=== PATIENT | female | born 1955 | race Caucasian/White ===

== ENCOUNTER 2022-01-16 11:15 | Outpatient (CLI) | payer MEDICARE, BC, SELFPAY ==
--- NOTE | 2022-01-16 11:30 | CRLHL7_ITS ---
For Patients: As a result of the Century Cures Act, medical imaging exams and procedure reports are released immediately into your electronic medical record. You may view this report before your referring provider. If you have questions, please contact your health care provider. BILATERAL SCREENING MAMMOGRAM WITH COMPUTER-AIDED DETECTION AND TOMOSYNTHESIS TECHNIQUE: CC and MLO views were obtained. These mammographic images have been obtained using full-field digital technique. These mammographic images were interpreted with the benefit of computer-aided detection. Breast Tomosynthesis was used in this interpretation. COMPARISON FILM: 12/29/20, 12/10/19, 11/05/18. FINDINGS: There are scattered areas of fibroglandular density IMPRESSION: There is no radiographic evidence for malignancy. ASSESSMENT: BI-RADS Category 1: Negative RECOMMENDATION: Routine screening mammogram in 1 year. A lay language report of this examination will be provided to the patient. Lana Fortune M.D. Diagnostic/Breast Radiologist [email or web address] NURYS/Dictated by: Lana Fortune MD @ 01/16/2022 12:16:00 PM (Electronically Signed)
== END 2022-01-16 11:16 | disposition home or self-care (01) ==
LOC: MAMMO 11:16
PROVIDERS: Visit Provider Family Medicine
DX: Z12.31 Encounter for screening mammogram for malignant neoplasm of breast (principal)
CPT/HCPCS: 77063; 77067

== ENCOUNTER 2022-01-31 08:53 | Outpatient (CLI) | payer MEDICARE, BC, SELFPAY ==
--- NOTE | 2022-01-31 09:00 | CRLHL7_ITS ---
For Patients: As a result of the Century Cures Act, medical imaging exams and procedure reports are released immediately into your electronic medical record. You may view this report before your referring provider. If you have questions, please contact your health care provider. Indication: NICOTINE DEPENDANCE REMISSION F/U Technique: Noncontrast CT chest including high-resolution inspiratory images in the supine position. Please note that all CT scans at this facility use dose modulation, iterative reconstruction, and/or weight-based dosing when appropriate to reduce radiation dose to as low as reasonably achievable. Comparison: 10/21/2020, 07/25/2019, 01/14/2019 Findings: Stable nodules within the right lower lobe, series 3, slice 45 and series 3, slice 56, measuring up to 9 millimeters. Associated calcifications are present within 1 of the nodules. Stable 8 millimeter nodule right middle lobe, series 3, image 50. Stable pleural-based densities along the right major fissure. Left lung clear. No pulmonary fibrosis. No bronchiectasis. No infiltrate or edema. No effusion or pneumothorax. Visualized thyroid normal. Residual thymic tissue incidentally noted. No significant calcifications of the coronary arteries. No adenopathy. Upper abdomen normal. No fracture. Impression: Stable right-sided pulmonary nodules. No pulmonary fibrosis. Please note that all CT scans at this facility use dose modulation, iterative reconstruction, and/or weight-based dosing when appropriate to reduce radiation dose to as low as reasonably achievable. Dictated by John Burleson MD @ 01/31/2022 12:23:59 PM (Electronically Signed)
== END 2022-01-31 08:54 | disposition home or self-care (01) ==
LOC: CT 08:54
PROVIDERS: PCP Family Medicine; Visit Provider Internal Medicine Pulmonary Disease
DX: F17.201 Nicotine dependence, unspecified, in remission (principal); R91.8 Other nonspecific abnormal finding of lung field
CPT/HCPCS: 71250

== ENCOUNTER 2022-06-27 11:02 | Outpatient (CLI) | payer MEDICARE, BC, SELFPAY ==
[2022-06-27 14:07] LABS: Basophils Absolute Auto 0.02 K/uL (0.00-0.30); Basophils Percent Auto 0.4 % (0.0-3.0); Eosinophils Absolute Auto 0.16 K/uL (0.00-0.50); Hemoglobin* 14.3 gm/dL (12.0-16.0); Lymphocytes Absolute Auto 1.72 K/uL (0.90-2.90); Lymphocytes Percent Auto 32.6 % (20-44); Mean Corpuscular HGB Conc 33 gm/dL (32-36); Mean Corpuscular Hemoglobin 29 pg (26-34); Mean Corpuscular Volume 89 fL (80-100); Monocytes Percent Auto 10.6 % (0.0-11.0); Neutrophils Absolute Auto 2.81 K/uL (1.7-7.0); Neutrophils Percent Auto 53.4 % (42.0-72.0); Platelet Count* 284 K/uL (140-440); RDW Coefficient of Variation % 12.6 % (11.5-15.5); Red Blood Count 4.94 m/uL (4.00-5.20); White Blood Count* 5.27 K/uL (4.50-11.00)
[2022-06-27 14:15] LABS: Slide Review Reflex No
[2022-06-27 14:17] LABS: Chloride* 106 mmol/L (96-114); Potassium* 4.8 mmol/L (3.6-5.1); Sodium* 137 mmol/L (135-149)
[2022-06-27 14:19] LABS: Cholesterol* 229 mg/dL (90-199); Creatinine* 0.5 mg/dL (0.5-1.5); Estimated Glomerular Filt Rate 103 ml/min
[2022-06-27 14:20] LABS: Blood Urea Nitrogen* 16 mg/dL (7-30); Calcium* 9.7 mg/dL (8.4-10.6); Carbon Dioxide* 26 mmol/L (20-32); Glucose* 97 mg/dL (60-115); HDL Cholesterol* 62 mg/dL (>=50); LDL Cholesterol Calculated 148 mg/dL (<100); Triglycerides* 96 mg/dL (40-149)
== END 2022-06-27 11:03 | disposition home or self-care (01) ==
PROVIDERS: PCP Family Medicine; Visit Provider Family Medicine
DX: Z00.00 Encounter for general adult medical examination without abnormal findings (principal); E78.5 Hyperlipidemia, unspecified
CPT/HCPCS: 80048; 80061; 85025

== ENCOUNTER 2022-08-08 06:09 | Day surgery (SDC) | payer MEDICARE, BC, SELFPAY ==
[2022-08-08] VITALS (13 sets, daily range): BP systolic 117–145; BP diastolic 61–95; PULSE 62–96; RESP 16; TEMP 36.6–37.2; O2SAT 93–99; BMI 34.9
--- OUTSIDE RECORDS SUMMARY | 2022-08-08 06:12 | XMS_ITS | Continuity of Care Document ---
Author Name Unknown Organization [facility] Address [address] [address] [place] [address] Phone Care Team Providers Care Insulation Cupola Operator Name Role Phone Christel Camilo CRNA Unavailable Unavailable Allergies, Adverse Reactions, Alerts Substance Reaction Status Criticality codeine Active No Information latex Rash Active No Information Medications Medication Instructions Dosage Effective Dates (start - stop) Status Comments Vitamin D3 125 mcg (5,000 unit) tablet - Active Herbal Medications/Suppleme nts unknown Theracurmi (30mg) - Active Multivitamin (unknown strength) Not Available - Active Procedures Procedure Date Colonoscopy Flex; W/remov Les- 23 Level Iv-surg Path Gross/micro Offic/outpt E&m New Mod-hi Advance Directives Directive Yes / No Effective Date File Name No Information Encounters Encounter Description Practice Location Reason(s) For Visit Diagnoses Date Provider Providers Copied on Encounter [facility], [address] [address], [place], [place], [id number], [place] tel:[phone] [facility] No Information Jun- 3 Ton Kearney. [address] [facility] [facility] [address], [place], [place], [id number] , [place]. [phone] Referring Provider: Sheeba Troncoso, [address] [facility] [address], [place], [address] . tel:[phone] [facility], [address] [address], [place], [id number], [place] tel:[phone] [facility] Personal history of other diseases of the digestive systemDiverticulosi s of colon without diverticulitisColor ectal polypsBenign neoplasm of ascending colonPersonal history of other diseases of the digestive systemDvrtclos of lg int w/o perforation or abscess w/o bleedingBenign neoplasm of ascending colon 3 Guilherme Aly . [address] [address], [place], [id number] , [place]. tel: [phone] Referring Provider: Referral Self. Offic/outpt E&m New Mod-hi [facility] [place], [address] [address], [place], [id number], [place] tel:[phone] [facility] GI Symptoms or Concerns (chief complaint) DiverticulosisHisto ry of diverticulitis 2 Robert Valenzuela. [address] [address], [place], [id number] , [place]. tel:[phone] Referring Provider: Referral Self. [facility] [place], [address] [address], [place], [id number], [place] tel:[phone] [facility] No Information 2 Néstor Pimentel. [address] [address], [place], [id number] , [place]. tel: [phone] Family History Family Member Type Diagnosis Age At Onset Mother Problem (finding) Diverticular disease Mother Problem Heart Issues (Heart Attack) Father Problem Heart Issues Immunizations Vaccine Date Status Comments SARS-COV-2 (COVID-19) vaccin e, mRNA, spike protein, LNP, preservative free, 30 mcg/0.3mL dose administered Note: [facility] bi-direct ional interface ; Source: Other Registry SARS-COV-2 (COVID-19) vaccin e, mRNA, spike protein, LNP, preservative free, 30 mcg/0.3mL dose administered Note: [facility] bi-direct ional interface ; Source: Other Registry tetanus and diphtheria toxoi ds, adsorbed, preservative free, for adult use (5 Lf of tetanus toxoid and 2 Lf of diphtheria toxoid) administered Note: [facility] bi-direct ional interface ; Source: Other Registry tetanus toxoid, reduced diphtheria toxoid, and acellular pertussis vaccine, adsorbed administered Note: [facility] b i-directional interface ; Source: Other Registry Payers Payer name Insurance type Covered alliance party ID Authoriza tipao(s) Blue Cross [place] Blue BL [id number] Social History Type Description Quantity Date Captured Comments Sex Female Smoking Status No Information Chief Complaint And Reason For Visit No Information Reason For Referral Reason For Referral No Information Plan Of Treatment Date Type Action Status Referral Ordered: Colonoscopy Appointment date/timeframe: 03/30/2022 ordered History Of Present Illness Encounter Date Complaint History Of Prese nt Illness GI Symptoms or Concerns Rachel is a pleasant 66-year-old female self-referred to our office for consultation/ 2nd opinion regarding recurrent diverticulitis. Reviewed 18 pages of medical records available from [facility] dated 09/11/2021. Per documentation patient has history of diverticulitis in 2019 with recurrent LLQ pain 08/24/2021 that was felt to be recurrent diverticulitis, she was [id number] days of Augmentin. Her LLQ returned and was admitted on 09/11/[address] suspicious for perforated diverticulitis and treated with IV antibiotics with complete resolution of pain. Pt was also seen and evaluated by general surgery during this hospital stay. She was discharged to home on 09/13/21. Reviewed abdominal CT scan dated 09/11/[address] from 06/03/18: impression included moderate focal wall thickening, diverticulosis and surrounding inflammatory changes seen in the proximal sigmoid colon. There is suspect for extraluminal gas and findings were suspicious for perforated diverticulitis. 2019 Colonoscopy not available for review. Per pt report recommendation was to repeat in 5 years but she does not know details of results. At present, patient reports that she has done well since discharge. She states that she has not had any recurrent lower abdominal pain and presents today for 2nd opinion. She states that it was recommended that she have a colonoscopy followed by a bowel resection. Pt expressed desire to avoid surgery.Patient denies bloody or black stools, fever, hematochezia, unintentional weight loss or nausea and vomiting. She states that she has a soft formed bowel movement every day denies straining. She continues to watch what she eats however is interested in learning more about a diet specific to diverticulosis. Patient denies family history of colon cancer Crohn's or ulcerative colitis. Social history: Former smoker, quitting 8 years ago, occasional use of alcohol and does not use NSAIDs. Past medical history significant for osteoarthritis, osteoporosis, diverticulitis in 2018, 2020 and August 2021. Surgical history includes right ESSENCE, x3 and bunion surgery Functional Status Date Functional Assessmen t No Information Instructions Date Instruction Additional Infor mation Diverticulosis/Diverticulitis Re lated to Diverticulosis of colon without diverticulitis Colon Polyps Related to Diver ticulosis of colon without diverticulitis Colon Cancer Prevention Related to Diverticulosis of colon without diverticulitis High Fiber Diet Related to Diver ticulosis of colon without diverticulitis Rachel it was a pleas ure meeting you today-We will order a colonoscopy. Someone from our office will call you to schedule this. -Patient education provided for diverticulosis/diverticulitisFollow up after colonoscopy HOW TO REACH MEParishu can reach me by sending a message through your patient portal or calling my patient coordinator at [phone] Related to Diverticulosis Diverticulosis/Diverticulitis Re lated to Diverticulosis Assessments Type Assessment Date No Information Patient Care Teams Name Effective Dates (start - stop) Status Members No Information
[2022-08-08] MEDS: LACTATED RINGERS 1000 ML 1,000 ML 100 ML IV ×2 (06:45→08:39)
[2022-08-08] MEDS: SODIUM CHLORIDE 0.9 % (FLUSH) 10 ML SYRINGE IVF (06:45)
[2022-08-08] MEDS: BUPIVACAINE 0.25% 30 ML 14 ML INJECTION (07:50)
--- NOTE | 2022-08-08 07:57 | W.ANESCHARGE ---
Anesthesia Charges Start Date/Time Anesthesia Start Date: 08/08/22 Anesthesia Start Time: 07:33 Stop Date/Time Anesthesia Stop Date: 08/08/22 Anesthesia Stop Time: 08:26
--- NOTE | 2022-08-08 08:11 | P.GSOP_ITS ---
Operative Note Date of procedure: 08/08/22 Pre-op diagnosis: Umbilical hernia Post-op diagnosis: incisional hernia, repaired primarily Type of Procedure: open incisional hernia repair, repaired primarily Indications: Patient is a 66-year-old female who presented to clinic with a symptomatic hernia on the superior aspect of her previous incision site, at the umbilicus. Different treatment options were reviewed with the patient including observation versus operative intervention. Risks and benefits of operative intervention were discussed at length with the patient. Risks included but was not limited to: Bleeding, infection, risk of damage to surrounding structures, possible need for additional procedures, risk of recurrence and postoperative compli cations such as pneumonia, pulmonary emboli or NC. All questions and concerns were addressed with the patient agreeing to proceed. Procedure Description: After discussing the risks and benefits of the procedure, the patient signed informed consent.? The operative site was marked and the patient was brought to the operating room and placed on the operating table in supine position.? Care was taken to pad the patient's pressure points.?? The patient was then intubated by anesthesia.?? The operative site was then prepped and draped in the usual st erile fashion.? A time-out was then performed. A curvilinear incision was made at the lateral aspect of the umbilicus, over the previous well-healed scar. Dissection was carried down into the subcutaneous tissue using cautery. The hernia sac was encountered and care was taken to not enter it. The hernia was just slightly inferior to the umbilical stock in on the superior aspect of the previous incision. Dissection was taken down to the fascia, and the umbilical stock was carefully dissected off of the underlying fascia, this was done in order to see the hernia edges. Once the hernia sac was dissected out circumferentially, it was reduced. The fascial edges were then cleared circumferentially. The hernia was less than 1 cm in size and so the decision was made to close the defect primarily. The fascial opening was closed in a vest over pants fashion with four interrupted 0-neurolon sutures. Local anesthetic was injected into the fascia, skin and subcutaneous tissues. The umbilicus was reapproximated to the fascia. The skin was then closed with running absorbable suture. A sterile dressing was then applied. Findings: Incisional hernia, less than 1 cm in size repaired primarily. Anesthesia: GETA Surgeon: Elenita Cancino MD Estimated blood loss (mL): 5 Condition: stable Disposition: same day
[2022-08-08] MEDS: LACTATED RINGERS 1000 ML 1,000 ML 35 ML IV (08:41)
--- NOTE | 2022-08-08 11:39 | W.ANESCHARGE ---
Anesthesia Charges Start Date/Time Anesthesia Start Date: 08/08/22 Anesthesia Start Time: 07:33 Stop Date/Time Anesthesia Stop Date: 08/08/22 Anesthesia Stop Time: 08:26
== END 2022-08-08 10:00 | disposition home or self-care (01) ==
PROVIDERS: PCP Family Medicine; Visit Provider Surgery
PROC: (CPT 49591; principal; 2022-08-08 07:30)
DX: K43.2 Incisional hernia without obstruction or gangrene (principal)
CPT/HCPCS: 49591; 00830; J0330; J1100; J1170; J1885; J2250; J2405; J2704; J2710; J3010; J3490; J7120

== ENCOUNTER 2022-12-25 10:33 | Outpatient (CLI) | payer MEDICARE, BC, SELFPAY | END 2022-12-25 10:34 | disposition home or self-care (01) | PROVIDERS: PCP Family Medicine; Visit Provider Family Medicine | DX: Z01.818 Encounter for other preprocedural examination (principal) | CPT/HCPCS: 80048; 85025 ==

== ENCOUNTER 2023-01-09 06:05 | Day surgery (SDC) | payer MEDICARE, BC, SELFPAY ==
[2023-01-09] VITALS (24 sets, daily range): BP systolic 78–152; BP diastolic 56–87; PULSE 63–98; RESP 12–24; TEMP 35.9–37.1; O2SAT 90–99; BMI 33.2
--- OUTSIDE RECORDS SUMMARY | 2023-01-09 06:07 | XMS_ITS | Continuity of Care Document ---
Author Name Unknown Organization [facility] Address [address] [address] [place] [address] Phone Care Team Providers Care Garnishment Specialist Name Role Phone Christel Camilo CRNA Unavailable [...] Diagnoses Date Provider Providers Copied on Encounter [facility], [address] [address], [place], [place], [id number], [place] tel:[phone] [facility] No Information 3 Ton Kearney. [address] [place] [address], [facility] [address], [place], [place], [id number], [place]. tel:[phone] Referring Provider: Sheeba Troncoso, [address] [facility] [address], [place], [address] . tel:[phone] [facility], [address] [address], [place], [place], [id number], [place] tel:[phone] [facility] Personal history of other diseases of the digestive systemDiverticul osis of colon without diverticulitisCo lorectal polypsBenign neoplasm of ascending colonPersonal history of other diseases of the digestive systemDvrtclos of lg int w/o perforation or abscess w/o bleedingBenign neoplasm of ascending colon 3 Guilherme Aly. [address], [id number], [place]. tel:[phone] Referring Provider: Referral Self. Offic/outpt E&m New Mod-hi [facility] [place], [address] [address], [place], [place], [id number], tel:[phone] [facility] GI Symptoms or Concerns (chief complaint) DiverticulosisHi story of diverticulitis 2 No Information Referring Provider: Referral Self. [facility] [place], [address] [address], [place], [place], [address], [place] tel:[phone] [facility] No Information 2 Néstor Pimentel. [address], [id number], [place]. tel:[phone] Family History Family Member Type Diagnosis Age [...] and acellular pertussis vaccine, adsorbed administered Note: [facility] b i-directional interface ; Source: Other Registry Payers Payer name Insurance type Covered constitution party ID Rizwan mack(s) Blue Cross [place] Blue BL [id number] Social History Type Description Quantity Date Captured [...] 18 pages of medical records available from [facility] dated 09/11/2021. Per documentation patient has history of diverticulitis in 2019 with recurrent LLQ pain 08/24/2021 that was felt to be recurrent diverticulitis, she was [id number] days of Augmentin. Her LLQ returned and [...] diverticulosis/diverticulitisFollow up after colonoscopy HOW TO REACH Perryu can reach me by sending a message through your patient portal or calling my patient coordinator at [phone] Related to Diverticulosis Diverticulosis/Diverticulitis Re lated to Diverticulosis Assessments Type Assessment Date No Information Patient Care Teams Name Effective Dates (start - stop) Status Members No Information
[2023-01-09] MEDS: LACTATED RINGERS 1000 ML 1,000 ML 100 ML IV (07:00)
[2023-01-09] MEDS: OXYCODONE (CR) 10 MG TAB.ER.12H PO (07:00)
[2023-01-09] MEDS: ACETAMINOPHEN 500 MG TABLET 1000 MG PO ×4 (07:00→23:48)
[2023-01-09] MEDS: SODIUM CHLORIDE 0.9 % (FLUSH) 10 ML SYRINGE IVF ×2 (07:00→21:53)
[2023-01-09] MEDS: CELECOXIB 200 MG CAPSULE PO (07:00)
--- NOTE | 2023-01-09 07:15 | CRLHL7_ITS ---
For Patients: As a result of the Cures Act, medical imaging exams and procedure reports are released immediately into your electronic medical record. You may view this report before your referring provider. If you have questions, please contact your health care provider. Indication: Hip replacement surgery Technique: AP hip fluoroscopic images. Fluoroscopy time 56.9 seconds. Findings/Impression: Hardware from a left total hip arthroplasty is in satisfactory position. Dictated by John Burleson MD @ 01/09/2023 9:31:54 AM (Electronically Signed)
[2023-01-09] MEDS: MIDAZOLAM HCL 1 MG/ML inj IVP (07:20)
[2023-01-09] MEDS: fentaNYL 100 MCG/2 ML inj IVP (07:20)
--- NOTE | 2023-01-09 07:30 | SUR.PREOP ---
TIME?OUT:?704 left hip PT/RN/MDA?VERIFICATION?OF?SURGICAL?SITE,?PROCEDURE,?AND?CONSENT OBTAINED?PRIOR?TO?INVASIVE?PROCEDURE.
[2023-01-09] MEDS: CEFAZOLIN 2 GM INJ IVP (07:40)
[2023-01-09] MEDS: TRANEXAMIC ACID 100 MG/ML INJ 1000 MG IV (07:42)
--- NOTE | 2023-01-09 09:14 | CRLHL7_ITS ---
For Patients: As a result of the Cures Act, medical imaging exams and procedure reports are released immediately into your electronic medical record. You may view this report before your referring provider. If you have questions, please contact your health care provider. Indication: POST OP LEFT ESSENCE Technique: AP hip centered pelvis and lateral view left hip Findings/Impression: Hardware from a left total hip arthroplasty is in satisfactory position. Bone alignment is normal. No sign of acute fracture. Postop changes are within normal limits. Dictated by John Burleson MD @ 01/09/2023 10:54:00 AM (Electronically Signed)
--- NOTE | 2023-01-09 09:17 | PM.ORPRC ---
Procedure Note Date of procedure: 01/09/23 Procedure: PREOPERATIVE DIAGNOSIS: Left hip osteoarthritis POSTOPERATIVE DIAGNOSIS: Left hip osteoarthritis NAME OF OPERATION: Left total hip arthroplasty SURGEON: Thomas Gooden MD UI DEVELOPER DESIGNER: Anuradha Champion PA-C, AISHA Alcantar IMPLANTS: 1. [employer] [place] # 52 sector ingrowth cup 2. 36 x 52 +4 neutral polyethylene 3. Actis # 5 standard collared ingrowth stem 4. 36 + 1.5 ceramic femoral head ANESTHESIA: General ESTIMATED BLOOD LOSS: 700 cc COMPLICATIONS: None SPECIMENS: None DRAINS: None PREOPERATIVE ANTIBIOTICS: Ancef 2 grams INDICATIONS: The patient is a 67-year-old with a longstanding history of severe, unrelenting left hip pain secondary to end-stage left hip osteoarthritis. Despite appropriate nonoperative management, including activity modification, use of an assist device, anti-inflammatories, tvwj-[id number] pain medication, physical therapy and injections, they continue to have pain and disability. Operative intervention was offered. The risks, benefits and expected outcomes were discussed in detail. These included but were not limited to: Infection, bleeding, injury to blood vessel or nerve, venous thromboembolism. All questions were answered to their satisfaction. Use of an accounts payable assistant was necessary throughout the case for patient positioning and safety, soft tissue retraction and closure. PROCEDURE: The patient was placed supine on the [place] table. General anesthesia was administered. The accounts payable assistant made sure the patient was properly positioned. The left hip was prepped and draped in the usual sterile fashion. The image intensifier was brought in for a perfect AP pelvis and a perfect double tear drop AP view of each hip which were used for intraoperative templating with our fluoroscopic guide. A modifier 22 should be added to this case. The patient's weight of 102 kg with a BMI of 33 kg/meter squared made the dissection difficult. This more than doubled the time typically required to complete the case. An oblique incision was made 3 cm distal and 3 cm lateral to the anterior superior iliac spine. The accounts payable assistant retracted the soft tissues to protect them. Subcutaneous dissection was taken with electrocautery to the superficial fascia. The fascia was divided in line with the incision. Blunt dissection was carried medially to the tensor fascia loy and sartorius interval. Deep dissection was carried with electrocautery. The circumflex vessels were cauterized and divided. The capsule was exposed and then divided in a T-fashion, tagged with #1 Ethibond sutures. Retractors were placed in the joint, held by the accounts payable assistant. The corkscrew was placed in the femoral head. The neck cut was made in the subcapital region. We made a second neck cut more distal. The napkin ring of bone was removed. The femoral head was removed intact. Acetabular retractors were placed, held by the accounts payable assistant. The labrum was sharply debrided. The capsule was released. The 43 mm reamer was used to the true medial wall. We then enlarged in 2 mm increments using the image intensifier for our reamer placement. We impacted the cup which had excellent purchase. We placed the hole eliminator and the polyethylene. Attention was then turned to the proximal femur. The limb was placed in 140 degrees of external rotation, maximum extension and adduction. A significant amount of time was spent releasing the capsule to allow us to deliver the femur into the wound and complete the femoral side safely. Retractors were held by the accounts payable assistant throughout the femoral preparation. The drip box tender and canal finder were used. Broaches were used to a stable size. The calcar reamer was used. Trial components were placed. The hip was reduced and was found to be stable with appropriate soft tissue tension. Length and offset had been nicely restored using the image intensifier and our fluoroscopic guide. Trial components were removed. The stem was impacted. We placed the femoral head. Again, the hip was reduced and was found to be stable with appropriate soft tissue tension. Length and offset had been nicely restored. The accounts payable assistant did a three minute dilute Betadine solution soak. The accounts payable assistant irrigated the wound with 3 liters of normal saline via pulse lavage. The accounts payable assistant repaired the anterior capsule with a #1 Vicryl and our previously placed Ethibond sutures. The accounts payable assistant closed the fascia over the tensor fascia loy with a #1 PDO Stratafix, subcutaneous tissues with 2-0 Vicryl, skin with a running 3-0 Stratafix and glue. A dry dressing was applied by the accounts payable assistant. Sponge and needle counts were correct x 2. The patient tolerated the procedure well; there were no apparent complications. They were awakened and extubated in the operating room, sent to the Post-Anesthesia Care Unit in satisfactory condition. PLAN: 1. The patient will be mobilized with physical therapy, weight-bearing as tolerates 2. Xarelto x 5 days then aspirin x 30 days will be used for DVT prophylaxis 3. The patient will be discharged once medically appropriate
--- NOTE | 2023-01-09 10:06 | W.ANESCHARGE ---
Anesthesia Charges Start Date/Time Anesthesia Start Date: 01/09/23 Anesthesia Start Time: 07:30 Stop Date/Time Anesthesia Stop Date: 01/09/23 Anesthesia Stop Time: 10:05
[2023-01-09] MEDS: fentaNYL 100 MCG/2 ML inj 50 MCG IVP ×3 (10:10→10:32)
--- NOTE | 2023-01-09 10:14 | W.ANESCHARGE ---
Anesthesia Charges Start Date/Time Anesthesia Start Date: 01/09/23 Anesthesia Start Time: 07:30 Stop Date/Time Anesthesia Stop Date: 01/09/23 Anesthesia Stop Time: 10:05
--- NOTE | 2023-01-09 10:15 | P.NB_ITS ---
Nerve Block Nerve Block Time Seen by Provider: 07:25 Date Seen: 01/09/23 Type of block requested by surgeon for post-operative analgesia: PABLO/LFCN Side: left Time out performed: Yes Verification of patient name: Yes Verification of date of : Yes Site marking: site marked Name of person performing procedure: Alexx Continuous monitoring Was continuous monitoring of O2 sat, B/P, equipment monitor phototypesetting, recorded every 15 minutes?: Yes Procedure Checklist: sterile prep, needles and gloves Ultrasound guided. Images saved: Yes Medications given in 5ml increments after negative aspiration: Ropivicaine %: 0.5 mL: 30 Needle gauge: 20 Decadron (mg): 10 Precedex (mcg): 25 Patient tolerated procedure well: Yes Additional comments: Needle noted below psoas tendon needle noted adjacent to LFCN Block Charges Block Charge (with Pro Fee): Other Periph Nerve Block Use of Ultrasound Machine for Block: Yes- US Guidance/pain block
[2023-01-09] MEDS: LACTATED RINGERS 1000 ML 1,000 ML 35 ML IV (10:36)
--- NOTE | 2023-01-09 10:48 | SUR.PHASEI ---
patient met discharge criteria per anesthesia
[2023-01-09] MEDS: OXYCODONE 5 MG TABLET PO ×3 (11:09→23:48)
--- NOTE | 2023-01-09 11:40 | SUR.OPER ---
PATIENT QUESTIONS ANSWERED SATISFACTORILY PREOPERATIVELY. PATIENT BROUGHT TO OR #3 PER CART AFTER ADMINISTRATION OF A BLOCK. Patient positioned supine on OR #3 bed. The perioperative team supported arms bilaterally on arm boards. Final approval of positioning by surgeon.
--- NOTE | 2023-01-09 11:57 | PM.IMCN1 ---
Date of Consult Consult date: 01/09/23 Requesting Physician: Orthopedics Primary Care Provider: John Cerna MD Consult Narrative Reason for consult: Medical management s/p left ESSENCE Narrative: Rachel Richmond is a 67 year old female past medical history significant for hypertension, recently started on lisinopril/hydrochlorothiazide, left hip osteoarthritis, is POD#0 s/p left total hip arthroplasty with Dr. Gooden. There have been no perioperative complications or nursing concerns reported. Updated and reviewed the active medical problems, past medical history, past surgical history, social history, allergies and medications in our electronic EMR. Review of Systems Narrative: REVIEW OF SYSTEMS: Complete review of systems performed and negative unless otherwise stated in HPI or below. 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 (ICD-10) Diverticulitis of colon with perforation ?K57.20 - Diverticulitis of large intestine with perforation and abscess without bleeding (ICD-10) Surgical History History of 3 sections ?Z98.891 - History of uterine scar from previous surgery (ICD-10) History of colonoscopy (~06/2022) ?Z98.890 - Other specified postprocedural states (ICD-10) H/O hernia repair (08/08/22) ?Z98.890 - Other specified postprocedural states (ICD-10) ?Z87.19 - Personal history of other diseases of the digestive system (ICD-10) History of bunionectomy of both great toes ?Z98.890 - Other specified postprocedural states (ICD-10) S/P right knee arthroscopy (11/12/07) ?Z98.890 - Other specified postprocedural states (ICD-10) S/P left knee arthroscopy (09/20/10) ?Z98.890 - Other specified postprocedural states (ICD-10) S/P left knee arthroscopy (03/31/96) ?Z98.890 - Other specified postprocedural states (ICD-10) Status post total hip replacement, right (01/08/18) ?Z96.641 - Presence of right artificial hip joint (ICD-10) History of hysterectomy ?Z90.710 - Acquired absence of both cervix and uterus (ICD-10) History of dilation and curettage ?Z98.890 - Other specified postprocedural states (ICD-10) Family History Maternal Grandmother Breast cancer Father Coronary artery disease High blood pressure Mother Coronary artery disease Son Epilepsy Social History Narrative: exercise involving walking non-smoker- quit 2013, hx 16 pack years rarely consumes alcohol single, retired, 3 adult kids What is your current living situation?: I presently have a place to live Problems where you live: no known problems In the past 12 months, utilities in danger of being shut off: no In past 12 months, lack of transportation kept you from medical appts, meetings, work, or getting things needed for daily living: no In the past 12 mos, have been you worried that your food would run out before you had money to buy more?: never true In the past 12 mos, the food you bought just didn't last and you didn't have money to buy more?: never true Highest level of school completed/degree received: decline to answer Smoking Status: Former smoker Do you use any of these nicotine containing products: None Second hand tobacco smoke exposure: No How often do you have a drink containing alcohol: 2-3 times a week Alcohol type: beer, wine and hard liquor How many standard drinks containing alcohol do you have on a typical day: 1 or 2 How often do you have six or more drinks on one occasion: Never AUDIT-C Alcohol total score: 3 Non-prescribed substance use: denies use Caffeine: Yes How often does anyone, including family, friends and others, physically hurt you: never How often does anyone, including family, friends and others, insult or talk down to you: never How often does anyone, including family, friends and others, threaten you with harm: never How often does anyone, including family, friends and others, scream or curse at you: never Little interest or pleasure in doing things: not at all Feeling down, depressed, or hopeless: not at all Are you using contraception or practicing any form of control: No service: No Meds Home Medications and Allergies Home Medications Medication Instructions Recorded Confirmed Type Theracormin 50 mg PO DAILY 06/06/22 01/09/23 History calcium carbonate 334 mg-magnesium 1 tab PO DAILY 06/06/22 01/09/23 History oxide 134 mg-zinc sulf 5 mg tablet cholecalciferol (vitamin D3) 125 5,000 unit PO DAILY 06/06/22 01/09/23 History mcg (5,000 unit) tablet hydrocortisone 2.5 % topical 1 applic topical BID PRN 12/22/22 01/09/23 History ointment lisinopril 10 1 tab PO DAILY 01/09/23 01/09/23 History mg-hydrochlorothiazide 12.5 mg tablet Allergies Allergy/AdvReac Type Severity Reaction Status Date / Time codeine Allergy Intermediate Rash Verified 01/09/23 06:12 latex Allergy Mild Rash Verified 01/09/23 06:12 Exam Narrative: Exam Narrative: PHYSICAL EXAM General: Pleasant, conversant, NAD HEENT: Normocephalic, atraumatic, sclera white, EOMI, oral mucosa moist Cardiovascular: RRR, S1S2. No pitting edema Pulmonary: CTA bilaterally without rhonchi, rales, expiratory wheezes. No dyspnea Abdominal: Soft, nondistended, NTTP Neurological: Alert, answering questions appropriately, cranial nerves intact, no focal findings Extremities: No gross joint deformity or swelling. Postoperative dressings in place. Neurovascularly intact. Skin: Warm, dry. No rash Const: Vital Signs, click to edit/add: Vital Signs - 24 hr 01/09/23 06:53 01/09/23 07:10 01/09/23 07:20 Temperature 97.5 F L Pulse Rate 66 81 75 Pulse Rate [Left P ulse Oximeter] Respiratory Rate 20 20 20 Blood Pressure 140/76 H 152/83 H 138/70 Blood Pressure [Le ft Arm] Pulse Oximetry 97 97 97 Oxygen Delivery Me thod Room Air Nasal Cannula Nasal Cannula Oxygen Flow Rate 2 2 01/09/23 10:01 01/09/23 10:05 01/09/23 10:10 Temperature 97.9 F 97.9 F 97.9 F Pulse Rate 98 85 80 Pulse Rate [Left P ulse Oximeter] Respiratory Rate 16 20 16 Blood Pressure 132/84 122/87 128/68 Blood Pressure [Le ft Arm] Pulse Oximetry 97 94 95 Oxygen Delivery Me thod Room Air Room Air Room Air Oxygen Flow Rate 01/09/23 10:15 01/09/23 10:20 01/09/23 10:25 Temperature 97.9 F 97.9 F 97.9 F Pulse Rate 77 77 70 Pulse Rate [Left P ulse Oximeter] Respiratory Rate 24 20 20 Blood Pressure 130/78 131/74 110/64 Blood Pressure [Le ft Arm] Pulse Oximetry 96 97 97 Oxygen Delivery Me thod Room Air Room Air Room Air Oxygen Flow Rate 01/09/23 10:30 01/09/23 10:35 01/09/23 10:47 Temperature 97.9 F 97.9 F 98.2 F Pulse Rate 65 64 90 Pulse Rate [Left P ulse Oximeter] Respiratory Rate 20 16 14 Blood Pressure 106/62 106/82 Blood Pressure [Le ft Arm] 78/67 L Pulse Oximetry 98 98 Oxygen Delivery Me thod Room Air Room Air Room Air Oxygen Flow Rate 01/09/23 11:02 01/09/23 11:15 Temperature 98.2 F 98 F Pulse Rate Pulse Rate [Left P ulse Oximeter] 78 98 Respiratory Rate 14 14 Blood Pressure Blood Pressure [Le ft Arm] 112/59 L 98/70 Pulse Oximetry 98 95 Oxygen Delivery Me thod Room Air Room Air Oxygen Flow Rate Assessment and Plan Assessment and plan (1) Osteoarthritis of left hip: Problem comment: -POD#0 s/p L ESSENCE -Perioperative management including pain control, anticoagulation, therapy per Orthopedic Surgery Status: Acute (2) Primary hypertension: Problem comment: -mildly hypotensive postoperatively as can be expected. Noted 700ml blood loss. Continue postoperative fluids, bolus as needed for SBP <100, and monitor -resume home medications upon discharge Status: Acute [facility] medicine will sign off. Please contact our service with any concerns or questions.
[2023-01-09] MEDS: LACTATED RINGERS 500 ML 250 ML IV (13:07)
[2023-01-09] MEDS: CEFAZOLIN 2 GM in 0.9 % SODIUM CHLORIDE Mini-bag 100 ML IVPB ×2 (15:37→23:48)
--- NOTE | 2023-01-09 15:39 | PC.NURSE ---
End of Shift: Patient pleasant and cooperative. Patient vitally stable, lungs clear, BS WNL, IV running LR at 75. Patient rates pain at most 4/10, 10 mg of oxy given x2. Patient 1 assist, walker, gb. Patient tolerating regular diet, drinking fluids, and urinated 300. Patient has also been up to chair. Patient currently on 1 L of oxygen NC as sats drop below 90 when patient falls asleep.
[2023-01-09] MEDS: LACTATED RINGERS 1000 ML 1,000 ML 75 ML IV (17:43)
[2023-01-09] MEDS: LACTATED RINGERS 500 ML 500 ML IV (17:43)
--- NOTE | 2023-01-09 19:40 | PC.NURSE ---
Patient reporting pain 1/10 following PRN Oxycodone. Up with A1, walker and gait belt to bathroom. While on toilet, patient became diaphoretic and reported feeling lightheaded and nauseated. Staff assist called and returned to bed. BP at that time noted to be 90/62. MD updated and order for LR 500ml bolus administered and HGB checked. Patient's BP increased to 99/61 and patient denied further symptoms. Tolerating regular diet for supper. Bowel sounds active and passing gas. O2 sats decreased to 80's on room air when asleep so O2 applied at 2L. Dressing to hip CDI and active ice in place.
[2023-01-09] MEDS: SENNOSIDES 1 TAB TABLET 2 TAB PO (21:16)
[2023-01-09] MEDS: HYDROmorphone 0.5 mg/0.5 ml inj IVP (21:52)
[2023-01-10 03:00] VITALS: BP 95/54; PULSE 79; RESP 16; TEMP 36.8; O2SAT 94
--- NOTE | 2023-01-10 05:47 | PC.NURSE ---
[id number] Pt up to recliner at beginning of shift, tolerated ambulating very well, denies lightheaded/dizziness. Pain rated 3-5/10, controlled with scheduled/prn pain medications. Ice to Left hip, dressing C/D/I. ambulating well with walker/GB/1A. No N/V, chest pain or headache, BP on the softer side, 90's systolically, pt asymptomatic with this. voiding without difficulty.
[2023-01-10] MEDS: ACETAMINOPHEN 500 MG TABLET 1000 MG PO (05:59)
[2023-01-10] MEDS: OXYCODONE 5 MG TABLET PO (05:59)
[2023-01-10 06:35] LABS: Hemoglobin* 10.6 gm/dL (12.0-16.0); Immature Granulocytes Abs Auto 0.02 K/uL (0.00-0.30); Immature Granulocytes Pct Auto 0.2 %; Lymphocytes Percent Auto 12.1 % (20-44); Mean Corpuscular HGB Conc 33 gm/dL (32-36); Mean Corpuscular Hemoglobin 31 pg (26-34); Mean Corpuscular Volume 92 fL (80-100); Monocytes Percent Auto 8.7 % (0.0-11.0); Platelet Count* 237 K/uL (140-440); RDW Coefficient of Variation % 12.8 % (11.5-15.5); Red Blood Count 3.48 m/uL (4.00-5.20); White Blood Count* 10.66 K/uL (4.50-11.00)
[2023-01-10 06:40] LABS: Slide Review Reflex No
[2023-01-10 07:06] LABS: Potassium* 4.2 mmol/L (3.6-5.1); Sodium* 135 mmol/L (135-149)
[2023-01-10 07:09] LABS: Creatinine* 0.6 mg/dL (0.5-1.5); Est. Creatinine Clearance* 57.05; Estimated Glomerular Filt Rate 98 ml/min
[2023-01-10 07:10] LABS: Blood Urea Nitrogen* 18 mg/dL (7-30)
[2023-01-10 08:10] VITALS: BP 111/58; PULSE 80; RESP 18; TEMP 36.7; O2SAT 98
[2023-01-10] MEDS: SENNOSIDES 1 TAB TABLET 2 TAB PO (08:38)
[2023-01-10] MEDS: 0.9 % SODIUM CHLORIDE 500 ML 500 ML IV (08:43)
[2023-01-10] MEDS: RIVAROXABAN 10 MG TABLET PO (08:43)
--- NOTE | 2023-01-10 09:09 | PM.ORPN ---
Subjective Subjective Time Seen by Provider: 07:15 Date Seen: 01/10/23 Principal diagnosis: Status post left hip replacement 01/09/2023 Interval history: Rachel is comfortable this morning in a recliner. He has been ambulating in this has been going well. She will discharge to home today Ortho Exam Narrative Exam Narrative: Alert and oriented x3. Patient is in no acute distress. Converses without labored breathing. Hearing is grossly intact. Ambulates with a walker. Examination the left hip shows the dressing is intact. Erythema from the cold pack is noted. Skin is cold in that area. CMS is intact left lower extremity. Good quad control. Bilateral calves are soft and nontender. Minimal soft tissue edema about the left hip. Thigh soft. Const Vital Signs, click to edit/add: Vital Signs - 24 hr 01/09/23 10:01 01/09/23 10:05 01/09/23 10:10 Temperature 97.9 F 97.9 F 97.9 F Pulse Rate 98 85 80 Pulse Rate [Left Pulse Oximeter] Respiratory Rate 16 20 16 Blood Pressure 132/84 122/87 128/68 Blood Pressure [Left Arm] Pulse Oximetry 97 94 95 Oxygen Delivery Method Room Air Room Air Room Air Oxygen Flow Rate 01/09/23 10:15 01/09/23 10:20 01/09/23 10:25 Temperature 97.9 F 97.9 F 97.9 F Pulse Rate 77 77 70 Pulse Rate [Left Pulse Oximeter] Respiratory Rate 24 20 20 Blood Pressure 130/78 131/74 110/64 Blood Pressure [Left Arm] Pulse Oximetry 96 97 97 Oxygen Delivery Method Room Air Room Air Room Air Oxygen Flow Rate 01/09/23 10:30 01/09/23 10:35 01/09/23 10:47 Temperature 97.9 F 97.9 F 98.2 F Pulse Rate 65 64 90 Pulse Rate [Left Pulse Oximeter] Respiratory Rate 20 16 14 Blood Pressure 106/62 106/82 Blood Pressure [Left Arm] 78/67 L Pulse Oximetry 98 98 Oxygen Delivery Method Room Air Room Air Room Air Oxygen Flow Rate 01/09/23 11:02 01/09/23 11:15 01/09/23 11:30 Temperature 98.2 F 98 F 97.7 F Pulse Rate Pulse Rate [Left Pulse Oximeter] 78 98 75 Respiratory Rate 14 14 14 Blood Pressure Blood Pressure [Left Arm] 112/59 L 98/70 88/64 L Pulse Oximetry 98 95 94 Oxygen Delivery Method Room Air Room Air Room Air Oxygen Flow Rate 01/09/23 11:45 01/09/23 12:15 01/09/23 12:45 Temperature 97.9 F 98.3 F 97.6 F Pulse Rate Pulse Rate [Left Pulse Oximeter] 70 70 76 Respiratory Rate 14 12 14 Blood Pressure Blood Pressure [Left Arm] 109/62 99/65 106/65 Pulse Oximetry 93 90 96 Oxygen Delivery Method Room Air Room Air Room Air Oxygen Flow Rate 01/09/23 14:00 01/09/23 14:45 01/09/23 15:45 Temperature 98.2 F 98.8 F 97.4 F L Pulse Rate Pulse Rate [Left Pulse Oximeter] 76 74 71 Respiratory Rate 14 14 14 Blood Pressure Blood Pressure [Left Arm] 98/60 90/56 L 107/69 Pulse Oximetry 96 95 97 Oxygen Delivery Method Room Air Room Air Room Air Oxygen Flow Rate 1 1 01/09/23 16:45 01/09/23 19:00 01/09/23 22:58 Temperature 96.6 F L 98.2 F 97.8 F Pulse Rate Pulse Rate [Left Pulse Oximeter] 63 89 84 Respiratory Rate 16 16 16 Blood Pressure Blood Pressure [Left Arm] 99/61 99/59 L 103/67 Pulse Oximetry 99 97 97 Oxygen Delivery Method Nasal Cannula Nasal Cannula Room Air Oxygen Flow Rate 1 1 0 01/10/23 03:00 Temperature 98.3 F Pulse Rate Pulse Rate [Left Pulse Oximeter] 79 Respiratory Rate 16 Blood Pressure Blood Pressure [Left Arm] 95/54 L Pulse Oximetry 94 Oxygen Delivery Method Room Air Oxygen Flow Rate 0 Assessment and Plan Assessment and plan (1) Primary hypertension: Problem details: -mildly hypotensive postoperatively as can be expected. Noted 700ml blood loss. Continue postoperative fluids, bolus as needed for SBP <100, and monitor -resume home medications upon discharge Status: Acute (2) Status post left hip replacement: Problem details: 01/09/2023 Status: Acute Assessment and Plan: Plan for discharge is today to home if they meet discharge criteria. DVT prophylaxis includes Xarelto 10 mg daily for total of 5 days, then aspirin 81 mg twice daily for 30 days, Ney stockings x1 month may remove for 1 hr per day, frequent ambulation Remove dressing 1 week. Observe wound and phone Orthopedics with any questions or concerns Use Ice on operative hip unrestricted. Return to clinic in 1 week with PA for a wound check Return to clinic in 6 weeks with surgeon Minimize narcotic use. Wean off and discontinue soon as possible. Activities as tolerated. No strenuous activity. Attend outpt PT Rachel has allergies to codeine and states she is tolerating oxycodone well. There for oxycodone has been sent to her pharmacy.
--- NOTE | 2023-01-10 14:02 | PC.NURSE ---
Patient transfered and ambulated with walker, gait belt and stand by assist. Tolerated regular diet. Denied any pain. Discharge orders received. Patient discharged at 1110. Two active ice packs sent home with patient. Patient was wheeled to ER door by nursing staff and accompanied by family. Patient met family vehicle at ER door and was transported from facility.
== END 2023-01-10 11:10 | disposition home or self-care (01) ==
LOC: OR 06:05 → MEDSURG 06:08
PROVIDERS: Hospitalist; PCP Family Medicine; Visit Provider Orthopaedic Surgery
PROC: (CPT 27130; principal; 2023-01-09 07:15)
DX: M16.12 Unilateral primary osteoarthritis, left hip (principal); G89.18 Other acute postprocedural pain; I10 Essential (primary) hypertension; Z79.01 Long term (current) use of anticoagulants
CPT/HCPCS: 27130; 01214; 36415; 64450; 73501; 76000; 76942; 82565; 84132; 84295; 84520; 85018; 85025; 86850; 86900; 86901; 97110; 97116; 97161; 97165; 97535; A9270; C1776; J0330; J0690; J1100; J1170; J2250; J2405; J2704; J2795; J3010; J3490; J7120

== ENCOUNTER 2023-02-08 13:00 | Outpatient (RCR) | payer MEDICARE, BC, SELFPAY ==
--- NOTE | 2023-01-18 11:47 | PT.OPEX ---
PT [place] Outpatient Eval PT [facility] Outpatient Eval Start: 01/18/23 09:19 Freq: Status: Active Protocol: Document 01/18/23 09:19 POLLO (Rec: 01/18/23 11:23 POLLO [id number]) E-signed By Ann Padron Physical Therapy Outpatient Evaluation Insurance Information Recert Due Date 04/19/23 Insurance Name Medicare B Medical Diagnosis M16.12 L hip OA Z96.642 Presence of artificial L hip Treating Diagnosis M25.552 Pain in L hip M25.652 Stiffness of L hip R26.9 Gait abnormality Referring MD Gooden Subjective Subjective Pt presents post-op LTHA on with Dr. Gooden. Pt reports that she's been doing well. Using RW for mobility. Pt needs to help LLE into/out of bed and car. Biggest complaint is that she can't sleep well and that her L hip is tingling. Stopped taking Oxy last Sunday, continuing to take Tylenol and baby Aspirin. Has not driven yet. Had follow up with Giacomo that went well. Pain Comments -06/23 Date of Last Physician Visit 01/17/23 Date of Surgery (If applicable) 01/09/23 Current Work Status Retired Preferred Name Rachel Precautions Weight Bearing Status Weight Bear as Tolerated Therapy Limitations/Systems Review Not Limited Objective Range of Motion Hip flexion L/R = 79/102 Hip extension L/R = Hip IR L/R = 30/45 Hip ER L/R = 18/18 Strength Hip flexion L/R = 3+/5 Hip abd L/R = 3-/5 Hip add L/R = 4/5 Quads L/R = 3+/5 Hamstrings L/R = 4/5 Swelling Minimal swelling L hip Balance & Gait Antalgic gait pattern with dec WB LLE, using RW. Assessment Assessment/Impression Pt is a 67yo F s/p LTHA on with Dr. Gooden. PMHx: HTN, osteoporosis, RTHA in 2018. Pt reports that she has been doing well since sx. Pain has been well controlled, continues to use RW. Sleeping continues to be difficult. Upon exam, pt shows dec L hip ROM compared to R, mainly limited in flexion and extension. LLE MMTs are limited in all directions. Pt demonstrates antalgic gait pattern with dec WB LLE. Pt would continue to benefit from skilled PT services to address strength, ROM, gait and balance deficits. Primary Functional Limitations Pain with functional activities Dec L hip ROM and strength Balance and gait deficits Plan of Care Rehabilitation Potential Excellent Physical Therapy Goals In 4-6 weeks: 1. Pt will demonstrate 30 degrees of hip extension as well as 110 degrees of hip flexion in order to achieve proper ROM for gait and stair negotiation. 2. Pt will display improved mechanics going up/down 13 stairs with a reciprocal pattern using 2 railings in order to safely get into house and 2nd floor of their home. 3. Pt will be independent with HEP to promote strength and decrease fall risk. 4. Pt will display improved left hip flex, hip ABD, quad and hamstring strength >4/5 in order to improve quality of gait without assistive device. 5. Pt will be able to stand for >15 minutes with B hip pain </= 2/10 in order to aid in meal preparation. Coordination/Communication With Referral Source Treatment Plan/Direct Interventions Gait Training,Manual Therapy, Neuromuscular Re-ed,Self-Care/ Home Management,Therapeutic Activities,Therapeutic Exercises Frequency/Duration 1x/week for 4-5 weeks Patient Will Be Discharged From Therapy Completion of LTG(s),Skills Plateau,Independent w/HEP, Independently Progressing Evaluation Billing Untimed Code Treatment Minutes 15 PT Eval No Charge No Complexity Low Certification Information Initial Certification Date 01/18/23 Ending Certification Date 04/19/23 Provider Signature Shows Agreement With POC & Medical Necessity Physician Comment/Change : Physician NPI Number #
== END 2023-06-08 23:59 | disposition home or self-care (01) ==
PROVIDERS: PCP Family Medicine; Visit Provider Orthopaedic Surgery
DX: M16.12 Unilateral primary osteoarthritis, left hip (principal); Z96.642 Presence of left artificial hip joint; M25.552 Pain in left hip; M25.652 Stiffness of left hip, not elsewhere classified; R26.9 Unspecified abnormalities of gait and mobility; Z51.89 Encounter for other specified aftercare
CPT/HCPCS: 97110; 97140; 97161; 97530

== ENCOUNTER 2023-02-21 13:47 | Outpatient (CLI) | payer MEDICARE, BC, SELFPAY ==
--- NOTE | 2023-02-21 14:00 | CRLHL7_ITS ---
For Patients: As a result of the Century Cures Act, medical imaging exams and procedure reports are released immediately into your electronic medical record. You may view this report before your referring provider. If you have questions, please contact your health care provider. BILATERAL SCREENING MAMMOGRAM WITH COMPUTER-AIDED DETECTION AND TOMOSYNTHESIS TECHNIQUE: CC and MLO views were obtained. These mammographic images have been obtained using full-field digital technique. These mammographic images were interpreted with the benefit of computer-aided detection. Breast Tomosynthesis was used in this interpretation. COMPARISON FILM: 01/16/22, 12/29/20, 12/10/19. FINDINGS: There are scattered areas of fibroglandular density IMPRESSION: There is no radiographic evidence for malignancy. ASSESSMENT: BI-RADS Category 1: Negative RECOMMENDATION: Routine screening mammogram in 1 year. A lay language report of this examination will be provided to the patient. John Burleson M.D. Diagnostic Radiologist [email or web address] NURYS/Dictated by: John Burleson MD @ 02/22/2023 12:37:00 PM (Electronically Signed)
== END 2023-02-21 13:48 | disposition home or self-care (01) ==
LOC: MAMMO 13:47
PROVIDERS: PCP Family Medicine; Visit Provider Family Medicine
DX: Z12.31 Encounter for screening mammogram for malignant neoplasm of breast (principal)
CPT/HCPCS: 77063; 77067

== ENCOUNTER 2023-02-23 10:50 | Outpatient (CLI) | payer MEDICARE, BC, SELFPAY ==
--- NOTE | 2023-02-23 11:00 | CRLHL7_ITS ---
For Patients: As a result of the Century Cures Act, medical imaging exams and procedure reports are released immediately into your electronic medical record. You may view this report before your referring provider. If you have questions, please contact your health care provider. Indication: F/U NODULES NICOTINE DEPENDANCE Technique: Noncontrast CT chest, including supine inspiratory high-resolution images. Please note that all CT scans at this facility use dose modulation, iterative reconstruction, and/or weight-based dosing when appropriate to reduce radiation dose to as low as reasonably achievable. Comparison: 01/31/2022 Findings: No pulmonary fibrosis. No bronchiectasis or pleural effusion. No infiltrate or pulmonary edema. Atherosclerotic changes within the tortuous descending thoracic aorta. Normal visualized thyroid. No adenopathy. No fracture. No significant interval change in the partially calcified nodule in the right lower lobe measuring 7.5 millimeters. Also stable noncalcified pulmonary nodule in the medial aspect of the right lower lobe measuring 8.2 millimeters. Unchanged nodule in the anterior right upper lobe measuring 7.2 millimeters. No new nodules. Impression: Stable right-sided pulmonary nodules. No pulmonary fibrosis. No adenopathy. Please note that all CT scans at this facility use dose modulation, iterative reconstruction, and/or weight-based dosing when appropriate to reduce radiation dose to as low as reasonably achievable. Dictated by John Burleson MD @ 02/26/2023 11:16:55 AM (Electronically Signed)
== END 2023-02-23 10:51 | disposition home or self-care (01) ==
LOC: CT 10:50
PROVIDERS: PCP Family Medicine; Visit Provider Internal Medicine Pulmonary Disease
DX: F17.211 Nicotine dependence, cigarettes, in remission (principal); R91.8 Other nonspecific abnormal finding of lung field
CPT/HCPCS: 71250

== ENCOUNTER 2023-08-27 13:38 | Outpatient (CLI) | payer MEDICARE, BC, SELFPAY ==
--- OUTSIDE RECORDS SUMMARY | 2023-08-27 13:41 | XMS_ITS | Clinical Summary ---
Author Name Unknown Organization [employer] [facility] [employer] [facility] Address [place], [place] [address] Care Team Providers Care Engineering Project Manager Name Role Phone Edson Schulz MD Primary Care Provider [phone] Allergies Active Allergy Reactions Criticality Noted Date Comments Codeine Rash 09/17/2006 Latex Rash 12/18/2018 Medications Medication Sig Dispensed Refills Start Date End Date Status whrpyxhh-gaelghhmmoi-e iet cb25 116-100 mg cap Take by mouth. 0 12/18/2018 Active omega 7-myy-xna-fish oil (FISH OIL) 60-90-500 mg cap Take by mouth. 0 12/18/2018 Acti ve Cholecalciferol, Vitamin D3, (VITAMIN D-3) 5,000 unit tab Take by mouth once daily. 0 12/18/2018 Active calcium/magnesium/zinc (CJZDCYI-EVINOLVDOX-LW NC) 333-133-5 mg tablet Take 1 tablet by mouth. 0 12/18/2018 Active Ubidecarenone-[place] 3-Vit E 25-150-200 mg-mg-unit cap Take by mouth. 0 12/18/2018 Active Active Problems Problem Noted Date Diagnosed Date Hallux valgus (acquired) 07/05/2008 Tobacco use disorder 09/17/2006 Immunizations Name Administration Dates Next Due Influenza, IIV3 (Age >=3 years) 02/10/2006 Td (Age >=7 Years) 07/20/2006 Social History Tobacco Use Types Packs/Day Years Used Date Smoking Tobacco: Former Cigarettes 0.3 20 Smokeless Tobacco: Never Comments:Quit smoking 2012 Alcohol Use Standard Drinks/Week Comments Yes 10 (1 standard drink = 0.6 oz pu re alcohol) Sex and Gender Information Value Date Recorded Sex Assigned at Not on file Gender Identity Not on file Sexual Orientation Not on file Obstetrics History Last Filed Vital Signs Vital Sign Reading Time Taken Comments Blood Pressure 125/80 12/18/2018 2:27 PM CDT Pulse 76 12/18/2018 2:27 PM CDT Temperature 36.8 ??C (98.3 ??F) 07/04/2007 4:46 PM CD T Respiratory Rate - - Oxygen Saturation 96% 12/18/2018 2:27 PM CDT Inhaled Oxygen Concentration - - Weight 100.8 kg (222 lb 3.2 oz) 12/18/2018 2:27 PM CDT Height 165.1 cm (5' 5) 07/02/2008 3:21 PM CDT Body Mass Index - - Plan of Treatment Health Maintenance Due Date Last Done Comments Tdap 10/15/1966 Depression screening for age 12+ 1967 BMI (ht and wt on same day) for age 18+ 10/15/1973 Hepatitis C screening for age 18-79 10/15/1973 Zoster (shingles) series for age 50+ (1 of 2) 10/16/19 06 Mammogram for age 45-75 04/11/2008 04/11/2007 Lipids for age 45-75 07/27/2011 07/26/2006 Tetanus booster 07/20/2016 07/20/2006 Colonoscopy through age 75 03/05/2017 03/05/2007 DEXA/DXA scan for age 65+ 10/15/2020 Pneumococcal series for age 65+ (1 of 1 - PCV) 021 COVID-19 vaccine series (2022-24 season) 3 Influenza for age 65+ 12/16/2023 02/10/2006 Procedures Procedure Name Priority Date/Time Associated Diagnosis Comments XR MAMMO BILAT SCREEN FFDM (IA) Routine 04/11/2007 3:51 PM PLUMBING CONTRACTOR Screening Mammogram Other LIPID PANEL Timed 07/26/2006 7:09 AM CDT from Last 3 Months or Most Recently Relevant to Health Maintenance Results * XR MAMMO BILAT SCREEN FFDM (04/11/2007 3:51 PM PLUMBING CONTRACTOR) MAMMOGRAM ACR 1 Negative Anatomical Region Laterality Modality BREASTS, Breast Left, Breast Right Bilateral Mammography 04/11/2007 3:51 PM PLUMBING CONTRACTOR Narrative 04/15/2007 11:08 AM PLUMBING CONTRACTOR Please see scanned document for results of this study. Procedure Note Edin Owusu MD - 04/17/2007 Please see scanned document for results of this study. Cordell Roque MD MAMMO * (ABNORMAL) LIPID PANEL (07/26/2006 7:09 AM CDT) CHOLESTEROL,TOTAL 218(H) 110 - 199 mg/dL [facility] TRIGLYCERIDES 70 <150 mg/dL [facility] HDL CHOLESTEROL 49 >40 mg/dL [facility] CHOL/HDL RATIO 4.45 <4.51 [facility] LDL CHOLESTEROL 155(H) <131 mg/dL [facility] PATIENT STATUS Fasting [facility] 07/26/2006 7:09 AM CDT 07/26/2006 7:09 AM CDT Tucker Luis MD CHEMISTRY [facility] [address] [place] [address] from Last 3 Months or Most Recently Relevant to Health Maintenance Care Teams Engineering Project Manager Relationship Specialty Start Date End Date Edson Schulz MD [address] [facility] [place] [id number] PCP - General Family Practice 12/18/18
== END 2023-08-27 13:39 | disposition home or self-care (01) ==
PROVIDERS: PCP Family Medicine; Visit Provider Family Medicine
DX: I10 Essential (primary) hypertension (principal); R63.5 Abnormal weight gain; Z13.220 Encounter for screening for lipoid disorders; Z13.29 Encounter for screening for other suspected endocrine disorder
CPT/HCPCS: 80048; 80061; 84443; 85025

== ENCOUNTER 2024-01-17 07:57 | Outpatient (CLI) | payer MEDICARE, BC, SELFPAY ==
--- OUTSIDE RECORDS SUMMARY | 2024-01-17 08:00 | XMS_ITS | Clinical Summary ---
Author Organization [email or web address] [facility] Address [place], [place] [address] Care Team Providers Care Online Activist Name Role Phone Edson Schulz MD Primary Care Provider Allergies Active Allergy Reactions Criticality Noted Date Comments Codeine Rash 09/17/2006 Latex Rash 12/18/2018 Medications Medication Sig Dispensed Refills Start Date End Date Status ifvxvtmm-rijkmpjzuqm-r iet cb25 116-100 mg cap Take by mouth. 0 12/18/2018 Active omega 7-qwl-tnf-fish oil (FISH OIL) 60-90-500 mg cap Take by mouth. 0 12/18/2018 Acti ve Cholecalciferol, Vitamin D3, (VITAMIN D-3) 5,000 unit tab Take by mouth once daily. 0 12/18/2018 Active calcium/magnesium/zinc (POWPTDQ-QRQBZKYJVJ-HI NC) 333-133-5 mg tablet Take 1 tablet by mouth. 0 12/18/2018 Active Ubidecarenone-[place] 3-Vit E 25-150-200 mg-mg-unit cap Take by [...] 1 - PCV) 021 COVID-19 vaccine series ( season) 4 Influenza for age 65+ 12/16/2023 02/10/2006 Procedures Procedure Name Priority Date/Time Associated Diagnosis Comments XR MAMMO BILAT SCREEN FFDM (IA) Routine 04/11/2007 3:51 PM OFFICE SPECIALIST Screening Mammogram Other LIPID PANEL Timed 07/26/2006 7:09 AM CDT from Last 3 Months or Most Recently Relevant to Health Maintenance Results * XR MAMMO BILAT SCREEN FFDM (04/11/2007 3:51 PM OFFICE SPECIALIST) MAMMOGRAM ACR 1 Negative Anatomical Region Laterality Modality BREASTS, Breast Left, Breast Right Bilateral Mammography 04/11/2007 3:51 PM OFFICE SPECIALIST Narrative 04/15/2007 11:08 AM OFFICE SPECIALIST Please see scanned document for results of this study. Procedure Note Edin Owusu MD - 04/17/2007 Please see scanned document for results of this study. Cordell Roque MD MAMMO * (ABNORMAL) LIPID PANEL (07/26/2006 7:09 AM CDT) CHOLESTEROL,TOTAL 218(H) 110 - 199 mg/dL [facility] TRIGLYCERIDES 70 <150 mg/dL [facility] HDL CHOLESTEROL 49 >40 mg/dL [facility] CHOL/HDL RATIO 4.45 <4.51 [facility] LDL CHOLESTEROL 155(H) <131 mg/dL [facility] PATIENT STATUS Fasting [facility] 07/26/2006 7:09 AM CDT 07/26/2006 7:09 AM CDT Tucker Luis MD CHEMISTRY [facility] [address] [place] [address] from Last 3 Months or Most Recently Relevant to Health Maintenance Care Teams Online Activist Relationship Specialty Start Date End Date Edson Schulz MD [address] [place] [address] PCP - General Family Practice 12/18/18
--- NOTE | 2024-01-17 08:15 | MR_ITS ---
[facility] [address] [facility] [address] Phone:?[phone] Fax:?[phone] Referring Physician Information: Thomas Gooden M.D. [address] [place] [id number] Phone:?[phone] Fax:?[phone] Patient:Delfino Richmond D.O.B:?1955 Sex:?Female Phone:?[phone] [facility] MRN:?[id number] Exam Date:?01/17/2024 EXAM: MRI of the LEFT KNEE, without contrast CLINICAL: Left knee pain with history of prior surgery in . Evaluate for medial meniscal tear. COMPARISONS: MRI 08/31/2010. X-rays 06/26/2023. TECHNICAL: Multiplanar multisequence MRI of the left knee was obtained. SEDATION: None. CONTRAST: None. FINDINGS: Ligaments: ACL: Intact and unremarkable. PCL: Intact and unremarkable. MCL: Intact and unremarkable. LCL: Intact and unremarkable. Posterolateral corner: Popliteus, biceps femoris, iliotibial band, and the popliteofibular ligament appear intact. Posteromedial corner: Semimembranosus, pes anserine tendons and posterior oblique ligament appear intact. Extensor mechanism: Patellar tendon: Intact, without tendinopathy. Quadriceps tendon: Intact, without tendinopathy. [place]: Postop changes of prior lateral patellar retinacular release. Patellofemoral joint: Patella: There is high-grade near full-thickness chondral loss involving the lateral patellar facet on axial series 4 image 9 with minimal underlying subchondral reactive change. Grade 2 chondral thinning involving the remainder of the patella. Small segment of deep chondral delamination involving the inferior patellar median ridge on sagittal series 6 image 16 with trace adjacent subchondral reactive edema. Focal chondral fissure involves the peripheral medial patellar facet on axial series 4 image 11. Chondral loss has progressed compared to prior examination. Trochlea: Grade 2-3 chondral loss involving the lateral trochlea is increased compared to prior examination. Medial compartment: Medial meniscus: There is complex tearing involving the posterior root as seen on prior examination. Complex tearing also involves the posterior horn and body segment extending into the anterior horn which appears increased compared to prior examination. Medial extrusion of the body segment is similar to prior examination. Medial cartilage: Grade 2-3 chondral loss involving the medial femoral condyle and peripheral medial tibial plateau is increased compared to prior examination with mild subchondral marrow edema/cystic change involving the medial tibial plateau. Lateral compartment: Lateral meniscus: Ill-defined complex tearing involving the posterior root as seen on sagittal series 6 image 19-21, new compared to prior exam. No meniscal displacement. Lateral cartilage: There is high-grade/full-thickness chondral loss involving the medial aspect of the weightbearing lateral femoral condyle and medial aspect of the lateral tibial plateau with mild underlying subchondral reactive edema/cystic change. This is increased compared to prior exam. Knee joint: Effusion: Small left knee effusion. Intra-articular bodies:?No convincing bodies identified. Popliteal cyst: None. Bones: Postoperative changes are seen to involve the proximal tibia with associated surgical hardware artifact similar to prior examination. No new fracture identified. There is scattered degenerative peripheral marginal spurring involving the knee which appears increased compared to prior examination. IMPRESSION: 1. Tearing of the medial meniscus as above, increased compared to prior examination. There is medial extrusion of the body segment medial meniscus into the medial gutter similar to prior exam. 2. Complex tearing of the posterior root lateral meniscus, new compared to prior exam. 3. Tricompartmental chondromalacia/chondral loss as above, increased compared to prior exam. 4. Postoperative changes of the proximal tibia similar to prior exam. 5. Small joint effusion. Z Electronically signed on 01/17/2024 12:36:00 PM by Misael White D.O.
== END 2024-01-17 07:58 | disposition home or self-care (01) ==
LOC: MRI 07:57
PROVIDERS: PCP Family Medicine; Visit Provider Orthopaedic Surgery
DX: M25.562 Pain in left knee (principal); S83.242A Other tear of medial meniscus, current injury, left knee, initial encounter; S83.272A Complex tear of lateral meniscus, current injury, left knee, initial encounter; M25.462 Effusion, left knee
CPT/HCPCS: 73721

== ENCOUNTER 2024-02-26 12:46 | Outpatient (CLI) | payer MEDICARE, BC, SELFPAY ==
--- NOTE | 2024-02-26 13:00 | CRLHL7_ITS ---
For Patients: As a result of the Cures Act, medical imaging exams and procedure reports are released immediately into your electronic medical record. You may view this report before your referring provider. If you have questions, please contact your health care provider. BILATERAL SCREENING MAMMOGRAM WITH COMPUTER-AIDED DETECTION AND TOMOSYNTHESIS TECHNIQUE: CC and MLO views were obtained. These mammographic images have been obtained using full-field digital technique. These mammographic images were interpreted with the benefit of computer-aided detection. Breast Tomosynthesis was used in this interpretation. COMPARISON FILM: 02/21/23, 01/16/22, 12/29/20. FINDINGS: There are scattered areas of fibroglandular density IMPRESSION: There is no radiographic evidence for malignancy. ASSESSMENT: BI-RADS Category 1: Negative RECOMMENDATION: Routine screening mammogram in 1 year. A lay language report of this examination will be provided to the patient. John Burleson M.D. Diagnostic Radiologist [email or web address] RONALDO/stephan / bM/Dictated by: John Burleson MD @ 02/29/2024 11:31:00 AM (Electronically Signed)
== END 2024-02-26 12:47 | disposition home or self-care (01) ==
LOC: MAMMO 12:47
PROVIDERS: PCP Family Medicine; Visit Provider Family Medicine
DX: Z12.31 Encounter for screening mammogram for malignant neoplasm of breast (principal)
CPT/HCPCS: 77063; 77067

== ENCOUNTER 2024-08-14 11:29 | Outpatient (CLI) | payer MEDICARE, BC, SELFPAY | END 2024-08-14 11:30 | disposition home or self-care (01) | PROVIDERS: PCP Family Medicine; Visit Provider Family Medicine | DX: E78.2 Mixed hyperlipidemia (principal); I10 Essential (primary) hypertension | CPT/HCPCS: 80048; 80061; 84443 ==

== ENCOUNTER 2024-08-22 09:40 | Outpatient (CLI) | payer MEDICARE, BC, SELFPAY ==
--- NOTE | 2024-08-22 10:00 | CRLHL7_ITS ---
For Patients: As a result of the Century Cures Act, medical imaging exams and procedure reports are released immediately into your electronic medical record. You may view this report before your referring provider. If you have questions, please contact your health care provider. INDICATION: Lung cancer screening. History of smoking. High risk patient with greater than 30 pack-year smoking history. TECHNIQUE: Low-dose lung cancer screening non-contrast CT chest. Dose reduction techniques were used. COMPARISON: 02/23/2023 FINDINGS: NODULES: 8 millimeter nodule in the right lower lobe medially is unchanged. Stable partially calcified nodule right lower lobe. Additional stable nodule within the right middle lobe measures 7 millimeters. Nodules adjacent to the right major fissure are similar. No left-sided nodule. LUNGS AND PLEURA: Emphysema. MEDIASTINUM: No adenopathy. CORONARY ARTERY CALCIFICATION: Present. LIMITED UPPER ABDOMEN: Unremarkable. MUSCULOSKELETAL: Degenerative disc disease. No fracture. IMPRESSION: Stable right-sided pulmonary nodules. LUNG-RADS CATEGORY: 2: Benign. RADIOLOGIST RECOMMENDATION: Continue annual screening with low-dose CT chest in 12 months. Please note that all CT scans at this facility use dose modulation, iterative reconstruction, and/or weight-based dosing when appropriate to reduce radiation dose to as low as reasonably achievable. Dictated by John Burleson MD @ 08/22/2024 3:46:03 PM (Electronically Signed)
== END 2024-08-22 09:41 | disposition home or self-care (01) ==
LOC: CT 09:41
PROVIDERS: PCP Family Medicine; Visit Provider Family Medicine
DX: Z12.2 Encounter for screening for malignant neoplasm of respiratory organs (principal); Z87.891 Personal history of nicotine dependence
CPT/HCPCS: 71271

== ENCOUNTER 2024-10-16 13:59 | Outpatient (RCR) | payer MEDICARE, BC, SELFPAY ==
--- NOTE | 2024-10-27 08:09 | PT.OPE ---
[facility] PT [facility] Out[facility] Eval Start: 10/16/24 15:54 Freq: Status: Active Protocol: Document 10/16/24 15:55 YESI (Rec: 10/16/24 15:57 YESI [id number]) E-signed By Luis Barriga DPT, MS Physical Therapy Outpatient Evaluation Insurance Information Recert Due Date 01/14/25 Insurance Name Medicare B,Blue Cross/[employer] Shield Medical Diagnosis Dizziness and giddiness Treating Diagnosis Dizziness, sensory disorganization, VOR cancellation deficit, dynamic visual acuity impairment, imbalance. Subjective Preferred Name Rachel Zuniga Patient is a 68 female y.o. male who presents to PT with c/o chronic dizziness sxs over the past >30 years. Minimal sxs over the past 2 weeks but pt hopes to learn new exercises/ treatment to help alleviate sxs during episode of vertigo. Sxs tend to occur with movement and also occasionally at rest. Sxs primarily occur with busy environments and quick head movements but has experiences multiple episodes of positional dizziness. Performs home self tx when she experiences positional dizziness but wants to review the maneuver. Pt believes dizziness has increased since she received the covid vaccine. Has avoided all vaccines and most medications since. Describes sxs as disorientation/ unsteadiness with occasional wavy vision. Long hx of motion sensitivity throughout her life. PMH includes HTN. AGGR factors: quick head movements and visual changes, busy environments, supine<>sit transfers during episodes of positional dizziness, uneven surfaces, amb with head turns. ALLEV factors: rest, slower movement, meclizine. Pain Comments None -mod dizziness Current Work Status Retired Precautions Therapy Limitations/ Not Limited Systems Review Objective Functional Test DHI: 36% Performed & Score Assessment Assessment/ Pt displays signs and symptoms consistent with previous Impression episodes of BPPV with continued chronic dizziness sxs. Testing found sensory disorganization, imbalance, VOR cancellation and dynamic visual acuity impairments found with testing. Negative BPPV testing with pt displaying overreliance on vision for balance, especially on compliant surfaces and with dynamic gait activities. VOR cancellation in a busy environment, DVA eye chart and amb with head turns recreated pt?s sxs. Reviewed and corrected home Jennifer maneuver self BPPV tx with good understanding. Emphasized the importance proper desensitization of sxs not pushing dizziness sxs past a moderate level, allowing sxs to return to baseline before attempting another set of vestibular exercises. She plans on attempting I sx management with her HEP but would benefit greatly from continued skilled therapy to address these limitations if she experiences continued or elevated sxs. Her chart will remain open for 60 days after today?s evaluation. Primary Functional Quick head movements and visual changes, busy Limitations environments, supine<>sit transfers during episodes of positional dizziness, uneven surfaces, amb with head turns. Plan of Care Rehabilitation Good Potential Rehabilitation Due to chronic nature of sxs Potential Comments Physical Therapy Therapy goals to be completed in 10 weeks: Goals 1. 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 2. Patient will report resolution of dizziness sxs with all daily activities for >5 consecutive days. 3. Patient will display improved Romberg balance on firm and foam surfaces with eyes closed >6 sec with minimal sway to improve safety walking in dark and on compliant surfaces. 4. Pt will report >75% improvement in DHI questionnaire to significantly improve sylvie to daily activities. Coordination/ Referral Source Communication With Treatment Plan/ Manual Therapy,Neuromuscular Re-ed,Therapeutic Direct Interventions Exercises Frequency/Duration Pt will attempt I sx management with their HEP but would benefit from PT tx 1x per week for at least 6-10 visits, if sxs persist Patient Will Be Completion of LTG(s),Skills Plateau,Independent w/HEP, Discharged From Independently Progressing Therapy Evaluation Billing Untimed Code 32 Treatment Minutes Complexity Moderate Certification Information Initial 10/16/24 Certification Date Ending Certification 01/14/25 Date Provider Signature Yes Required Provider Signature POC & Medical Necessity Shows Agreement With Physician NPI Number Write NPI# Here Physician Comment/ : Change Physician Signature Please Sign/Date Here & Date Requested
== END 2025-02-13 23:59 | disposition home or self-care (01) ==
PROVIDERS: PCP Family Medicine; Visit Provider Otolaryngology
DX: R42 Dizziness and giddiness (principal); Z51.89 Encounter for other specified aftercare
CPT/HCPCS: 97110; 97162

== ENCOUNTER 2025-02-25 09:26 | Outpatient (CLI) | payer MEDICARE, BC, SELFPAY | END 2025-02-25 09:27 | disposition home or self-care (01) | PROVIDERS: PCP Family Medicine; Visit Provider Family Medicine | DX: E78.2 Mixed hyperlipidemia (principal); I10 Essential (primary) hypertension | CPT/HCPCS: 80048; 80061; 84460 ==